=== PATIENT | male | born 1980 | race Two or more races ===

== ENCOUNTER 2017-10-28 09:47 | Emergency (ER) | payer SELFPAY ==
[~2017-10-28] VITALS: Ht 172.7 cm; Wt 140.0 kg
[2017-10-28] MEDS ORDERED: DEXAMETHASONE 10 MG/ML VIAL IM ONE (13:00)
[2017-10-28] MEDS ORDERED: KETOROLAC 60MG/2ML VIAL IM ONE (13:00)
[2017-10-28 13:17] VITALS: BP 158/87
== END 2017-10-28 13:57 | disposition home or self-care (01) ==
LOC: ER 09:58
DX: J02.9 Acute pharyngitis, unspecified (principal); F12.10 Cannabis abuse, uncomplicated
CPT/HCPCS: 87070; 87430; 96372; 99284; J1100; J1885; Z7610